=== PATIENT | male | born 1940 | race Caucasian/White ===

== ENCOUNTER 2020-04-13 05:58 | Inpatient (IN) ==
[2020-04-08 14:30] LABS: Basophils # (Auto) 0.04 K/mcL (0.00-0.30); Basophils % (Auto) 0.6 % (0.0-2.0); Eosinophils # (Auto) 0.23 K/mcL (0.00-0.70); Eosinophils % (Auto) 3.7 % (0.0-7.0); Hematocrit 42.6 % (40.1-51.0); Hemoglobin 13.9 g/dL (13.7-17.5); Lymphocytes # (Auto) 1.75 K/mcL (1.50-4.80); Lymphocytes % (Auto) 28.2 % (15.5-49.0); Mean Cell Volume 90.1 fL (80.0-100.0); Mean Corpuscular HGB Conc 32.6 g/dL (31.0-36.0); Monocytes % (Auto) 14.5 % (1.0-12.0); Platelet Count 176 K/mcL (140-440); RBC 4.73 M/mcL (4.63-6.08); Red Cell Distribution Width 14.5 % (11.5-14.5); WBC 6.2 K/mcL (4.50-11.00)
[2020-04-08 14:41] LABS: Prothrombin Time 13.6 sec (11.9-14.5)
[2020-04-08 14:52] LABS: Blood Urea Nitrogen 25 mg/dl (8-23); Calcium 10.2 mg/dl (8.6-10.4); Carbon Dioxide 25 mmol/L (22-30); Chloride 101 mmol/L (96-108); Glomerular Filtration Rate 58; Glucose 93 mg/dL (70-105)
[2020-04-08 15:15] LABS: Appearance,Urine CLEAR; Bilirubin,Urine NEG (NEG); Color,Urine YELLOW; Culture Indicated,Urine NO; Glucose,Urine (UA) NEGATIVE (NEG); Ketones,Urine NEG (NEG); Leukocyte Esterase,Urine NEG /uL (NEG); Nitrate,Urine NEG (NEG); Protein,Urine NEG (NEG); Specific Gravity,Urine 1.019 (1.000-1.035); Urine Blood NEG mg/dL (<0.03); Urobilinogen,Urine NEG (NEG)
[2020-04-13] MEDS ORDERED: CELECOXIB 200 MG CAPSULE PO SCH (06:00)
[2020-04-13] MEDS ORDERED: ceFAZolin 2 GM in DEXTROSE 5% IN WATER 50 ML IV SCH (06:00)
[2020-04-13] MEDS ORDERED: PREGABALIN 75 MG CAPSULE PO SCH (06:00)
[2020-04-13] MEDS ORDERED: oxyCODONE 10 MG TAB.ER.12H PO SCH (06:00)
[2020-04-13] MEDS ORDERED: ACETAMINOPHEN 500 MG TABLET PO SCH (06:00)
[2020-04-13] MEDS ORDERED: SCOPOLAMINE 1 PATCH PATCH TOPICAL PRN (07:30)
[2020-04-13] MEDS ORDERED: IPRATROPIUM/ALBUTEROL 3 ML AMPUL.NEB NEB PRN ×2 (07:30→10:16)
[2020-04-13] MEDS ORDERED: ONDANSETRON 4 MG/2 ML VIAL ONE (09:30)
[2020-04-13] MEDS ORDERED: KETAMINE 100 MG/ML ML ONE (09:30)
[2020-04-13] MEDS ORDERED: ROPIVACAINE HCL/PF 20 ML VIAL IJ ONE (09:30)
[2020-04-13] MEDS ORDERED: ESMOLOL 100 MG/10 ML VIAL IV ONE (09:30)
[2020-04-13] MEDS ORDERED: SUCCINYLCHOLINE 20 MG/ML ML IV ONE (09:30)
[2020-04-13] MEDS ORDERED: GLYCOPYRROLATE 0.2 MG/ML VIAL IV ONE (09:30)
[2020-04-13] MEDS ORDERED: LIDOCAINE HCL/PF 100 MG/5 ML SYRINGE IV ONE (09:30)
[2020-04-13] MEDS ORDERED: fentaNYL 250 MCG/5 ML VIAL IV ONE (09:30)
[2020-04-13] MEDS ORDERED: PROPOFOL 200 MG/20 ML VIAL IV ONE (09:30)
[2020-04-13] MEDS ORDERED: PHENYLEPHRINE 10 MG/ML VIAL ONE (09:30)
[2020-04-13] MEDS ORDERED: DEXAMETHASONE 10 MG/ML VIAL ONE (09:30)
[2020-04-13] MEDS ORDERED: MIDAZOLAM 2 MG/2 ML VIAL ONE (09:30)
[2020-04-13] MEDS ORDERED: GENTAMICIN SULFATE 800 MG/20 ML VIAL IR ONE (09:48)
[2020-04-13] MEDS ORDERED: ONDANSETRON 4 MG/2 ML VIAL IV PRN ×2 (10:16→18:01)
[2020-04-13] MEDS ORDERED: BENZOCAINE/MENTHOL 1 LOZENGE PO PRN ×2 (10:16→18:01)
[2020-04-13] MEDS ORDERED: LACTATED RINGERS 250 ML IV PRN (10:16)
[2020-04-13] MEDS ORDERED: METHOCARBAMOL 1,000 MG/10 ML VIAL IV PRN (10:16)
[2020-04-13] MEDS ORDERED: FLUMAZENIL 0.1 MG/ML ML IV PRN (10:16)
[2020-04-13] MEDS ORDERED: fentaNYL 100 MCG/2 ML VIAL IV PRN (10:16)
[2020-04-13] MEDS ORDERED: NALOXONE HCL 0.4 MG/ML VIAL IV PRN (10:16)
[2020-04-13] MEDS ORDERED: LABETALOL 5 MG/ML ML IV PRN (10:16)
[2020-04-13] MEDS ORDERED: METOPROLOL TARTRATE 5 MG/5 ML VIAL IV PRN (10:16)
[2020-04-13] MEDS ORDERED: LACTATED RINGERS 1,000 ML IV SCH ×2 (10:30→18:15)
--- NOTE | 2020-04-13 10:55 | Discharge Plan ---
Discharge Instructions - TSA Patient Instructions Total Shoulder Protocol: Leave immobilizer in place except for bathing and ROM. Abduction pillow. Continue to wear sling until seen by physician. [place]man Pendulum : These exercises use momentum produced by your body to move your shoulder joint. Bend your knees and shift your weight to your front leg, then back, allowing your arm to swing in the same directions. Using the same technique, alternately shift your weight between your right and left legs, allowing your arm to swing from side to side. These exercises are also performed in counterclockwise and clockwise circular motions. Typically these exercises are performed several times per day, for a set number repetitions or minutes, such as 20 times in a row or 5 minutes at a time. Discharge Plan Patient/Caregiver Discharge Instructions Activity: as per physical therapy Diet: Regular Diet and Cardiac Prescriptions: New oxycodone-acetaminophen 5-325 mg tablet 1 - 2 tab PO Q4H MDD 8 PRN (Reason: pain) Qty: 75 RF: 0 docusate sodium 100 mg capsule 100 mg PO BID Qty: 60 RF: 0 No Action amlodipine 5 MG tablet 5 mg PO HS RF: 0 hydrochlorothiazide 12.5 MG capsule 12.5 mg PO DAILY RF: 0 lisinopril 40 MG tablet 40 mg PO HS RF: 0 aspirin [Adult Low Dose Aspirin] 81 MG tablet,delayed release (DR/EC) 81 mg PO DAILY RF: 0 docusate sodium 100 MG capsule 100 mg PO BID Qty: 60 RF: 0 [id number] [MegaRed [place]-3 Krill Oil] 1,000-230-60 mg Capsule 1 cap PO QDAY RF: 0 Other Ambulatory Orders: Brace/Splint (ONCE) Location: None Selected Ordered By: Mike Maurice Physical Therapy DC - TSA (Routine) Location: None Selected Ordered By: Mike Maurice Follow Up Plan Follow up with: Mike Maurice PA-C [Physician Deputy District Customs Director] - Patient Disposition: Home, Self-Care Prognosis: Good Rehab Potential: Good I certify that the patient requires SNF services: No Overall status at discharge: patient is progressing back to baseline Discharge Orders: Discharge Order (Routine); Ordered 04/14/20 Ordered By: Mike Maurice
[2020-04-13] MEDS ORDERED: POLYETHYLENE GLYCOL 3350 17 GM PACKET PO PRN (18:01)
[2020-04-13] MEDS ORDERED: ACETAMINOPHEN 325 MG TABLET PO PRN (18:01)
[2020-04-13] MEDS ORDERED: MAGNESIUM HYDROXIDE 30 ML ORAL.SUSP PO PRN (18:01)
[2020-04-13] MEDS ORDERED: KETOROLAC 15 MG/ML VIAL IV PRN (18:01)
[2020-04-13] MEDS ORDERED: BISACODYL 10 MG SUPP.RECT PR PRN (18:01)
[2020-04-13] MEDS ORDERED: TRANEXAMIC ACID 1,000 MG/10 ML VIAL IV ONE (18:01)
[2020-04-13] MEDS ORDERED: TEMAZEPAM 15 MG CAPSULE PO PRN (18:01)
[2020-04-13] MEDS ORDERED: FLEETS ADULT ENEMA PR PRN (18:01)
[2020-04-13] MEDS ORDERED: HYDROmorphone 1 MG/ML SYRINGE IV PRN (18:01)
[2020-04-13] MEDS: ceFAZolin 1 GM VIAL IV SCH (19:27)
[2020-04-13] MEDS ORDERED: SENNOSIDES 1 TABLET PO SCH (21:00)
[2020-04-13] MEDS ORDERED: LISINOPRIL 20 MG TABLET PO SCH (21:00)
[2020-04-13] MEDS ORDERED: amLODIPine 5 MG TABLET PO SCH (21:00)
[2020-04-13] MEDS ORDERED: DOCUSATE SODIUM 100 MG CAPSULE PO SCH (21:00)
[2020-04-13] MEDS: DOCUSATE SODIUM 100 MG CAPSULE PO SCH (21:07)
[2020-04-13] MEDS: 0.9 % SODIUM CHLORIDE 10 ML SYRINGE IV SCH (21:16)
[2020-04-14] MEDS: ceFAZolin 1 GM VIAL IV SCH (03:21)
--- NOTE | 2020-04-14 07:46 | Orthopedic Progress Note ---
SUBJECTIVE Subjective Patient information: Note initiated : 04/14/20 at 7:45 am Service Date, if different from initiated Date: [] Patient: Johnnie Marcelo 79 y/o M admitted on 04/13/20 for Right Reverse Total Shoulder Arthroplasty . Chief Complaint: [Pt is stable this morning on post operative day without any significant concerns or complaints. Patients vital signs have remained stable. Patients dressing is dry and is grossly intact from a neurovascular and motor standpoint. Patients 10 point ROS is otherwise negative. ] Constitutional Vitals: Vital Signs Temp Pulse Resp BP Pulse Ox 97.8 F 62 15 118/60 96 04/14/20 04:32 04/14/20 04:32 04/14/20 04:32 04/14/20 04:32 04/13/20 23:29 Period Temp Pulse Resp BP Sys/Shipman Pulse Ox Last 24 Hr 96.6 F-98.5 F 45-101 - 91-128/46-77 91-100 Intake and Output 04/13/20 04/14/20 04/14/20 21:59 05:59 13:59 Intake Total 2360 1300 450 Output Total 800 425 325 Balance 1560 875 125 Weight 220 lb 9.6 oz Intake & Output: Intake & Output 04/13/20 04/14/20 04/14/20 21:59 05:59 13:59 Intake Total 2360 1300 450 Output Total 800 425 325 Balance 1560 875 125 Weight 220 lb 9.6 oz Intake: Oral 2360 1300 450 Output: Urine Catheter Amount 800 Void Amount 425 325 Other: Meal Dinner Percent of Meal Consumed 50% Feeding Ability Independent Urine Appearance Clear Straight Clear Urine Color Dark Yellow Straight Dark Yellow Urine Odor Strong Extremities Exam Extremities exam: Present normal capillary refill, normal inspection, Foot pink and warm and neurovascular intact OBJ DATA Labs CBC & Chem 7: 04/08/20 11:25 04/08/20 11:25 Meds: Medications Acetaminophen (Tylenol) 650 mg PO Q6HP PRN PRN Reason: PAIN/FEVER > 101 Hydrocodone Bitart/Acetaminophen ([place] 10/325mg) 0 tab PO Q4HP PRN PRN Reason: PAIN LEVEL 3-6 Amlodipine Besylate (Norvasc) 5 mg PO HS [facility] Last Admin: 04/13/20 21:07 Dose: 5 mg Documented by: Aspirin (Aspirin) 81 mg PO DAILY [facility] Bisacodyl (Dulcolax) 10 mg WA Q2-3DAYS PRN PRN Reason: Constipation Docusate Sodium (Colace) 100 mg PO BID [facility] Last Admin: 04/13/20 21:07 Dose: 100 mg Documented by: Hydrochlorothiazide (Oretic) 12.5 mg PO DAILY [facility] Hydromorphone HCl (Dilaudid) 0 mg IV Q2HP PRN; Protocol PRN Reason: Per Pain Protocol Ketorolac Tromethamine (Toradol) 15 mg IV Q6HP PRN PRN Reason: Pain Stop: 04/15/20 18:01 Lisinopril (Zestril) 40 mg PO [facility] Last Admin: 04/13/20 21:07 Dose: 40 mg Documented by: Magnesium Hydroxide (Milk Of Magnesia) 30 ml PO BIDP PRN PRN Reason: Constipation Ondansetron HCl (Zofran) 4 mg IV Q4HP PRN PRN Reason: Nausea And Vomiting Polyethylene Glycol (Miralax) 17 gm PO DAILYP PRN PRN Reason: Constipation Senna (Senokot) 2 tab PO HS [facility] Last Admin: 04/13/20 21:07 Dose: 2 tab Documented by: Sodium Biphosphate/Sodium Phosphate (Fleets Adult) 1 dose WA Q3-4DAYS PRN PRN Reason: Constipation Sodium Chloride (Saline Flush) 10 ml IV Q8 [facility] Last Admin: 04/13/20 21:16 Dose: 10 ml Documented by: Temazepam (Restoril) 15 mg PO HSP PRN PRN Reason: Insomnia Last Admin: 04/13/20 21:07 Dose: 15 mg Documented by: Throat Lozenges (Cepacol) 1 lozenge PO PRN PRN PRN Reason: Sore Throat A/P Narrative A/P Narrative: The patient has been educated regarding dressing care, Physical Therapy recommendations, home exercises, restrictions, and follow up appointments. The patient has had all necessary DME prescribed. The patient has remained relatively stable during their hospital course. Time Spent With Patient Time: Total time spent is greater than 50% in coordination of care (as documented) at patient's floor/unit and/or counseling patient: Total time spent with greater than 50% in coordination of care (as documented) at patient's floor/unit and/or counseling patient:: less than 15 minutes
[2020-04-14] MEDS: DOCUSATE SODIUM 100 MG CAPSULE PO SCH (08:13)
[2020-04-14] MEDS: 0.9 % SODIUM CHLORIDE 10 ML SYRINGE IV SCH ×2 (08:13→13:16)
[2020-04-14] MEDS ORDERED: HYDROCHLOROTHIAZIDE 12.5 MG CAPSULE PO SCH (09:00)
[2020-04-14] MEDS ORDERED: KRILL OM DHA EPA PHOSPHO AST PO SCH (09:00)
[2020-04-14] MEDS ORDERED: ASPIRIN 81 MG TAB.CHEW PO SCH (09:00)
--- NOTE | 2020-04-14 09:05 | XRay Report ---
HISTORY: Postop right shoulder arthroplasty FINDINGS: There is a well-positioned reverse shoulder prosthesis. No fracture is present. There is gas in the soft tissues around the joint. IMPRESSION: Well-positioned shoulder prosthesis Interpreted and Authenticated by: Cam Kaplan 04/14/20
--- NOTE | 2020-04-14 10:11 | Operative Note ---
DATE OF OPERATION: 04/13/2020 PREOPERATIVE DIAGNOSIS: Right shoulder rotator cuff arthropathy with severe arthritis. POSTOPERATIVE DIAGNOSIS: Right shoulder rotator cuff arthropathy with severe arthritis. PROCEDURE: Right reverse total shoulder. SURGEON: Santosh Burdick MD PUBLIC HEALTH SPECIALIST: Mike Maurice PA-C. This provider's expertise and technical skill were required throughout the case. The PA assisted with preoperative coordination, intraoperative retraction, wound closure, dressing and splint application, as well as postoperative documentation and care coordination. ANESTHESIA: General LMA anesthesia. COMPLICATIONS: None. ESTIMATED BLOOD LOSS: About 150 mL DISPOSITION: PACU. INDICATION FOR SURGERY: Failed conservative care. The patient had lost the ability to raise his arm above his head or even get it shoulder level. It had almost become completely immobile. It had a prior reverse total shoulder done on the left side with which he has done very well. The patient understood the risks and benefits, and agreed to proceed with the case. DESCRIPTION OF PROCEDURE: We marked the shoulder appropriately for clearance and signed the consent form. Once done, the patient was put to sleep with general LMA anesthesia. Once asleep, the patient had the right shoulder sterilely prepped and draped in the usual sterile fashion in a beach chair position. Once this was done, we placed Ioban over the skin and over the axillary fold. We then made a deltopectoral approach to the shoulder which measured about 4 inches in length. We retracted the deltoid laterally and he had an excellent deltoid. We exposed the joint, released the subscap and the biceps tendon remnants. We then irrigated thoroughly and then dislocated the humeral head, making our neck cut at its anatomical location. Once done, we then subluxed the humeral head posteriorly and released the glenoid labrum. Remnants of the biceps was released as well. Once we had performed a 360-degree capsular release as well as labral removal a central pin was then placed. This was reamed up for the 40 mm glenosphere. We placed the metaglene with a central screw measuring 32 mm, placing the peripheral screws, which measured 24, 28 and 32. These all gave excellent fixation. A 40 mm eccentric glenosphere with 2 mm of offset was tapped into place to optimize coverage. We then prepared the humerus. The humerus was prepared, reaming up to the size 13. We then trialed the size 13 stem and a standard poly. Initially, this was too tight. We did have to countersink the stem slightly and recut the anatomical neck cut. Once done, we then retrialed. This gave excellent stability and range of motion and the tension was perfect with 1 mm of play. We irrigated thoroughly and then placed a 13 stem with a small amount of cement distally. This was antibiotic-impregnated cement given the patient's diabetes. Once done, we were able to then place a standard thickness poly and it was very stable. We repaired the deltopectoral interval with 2-0 Vicryl and the skin was closed with Stratafix and adhesive closure. A DonJoy sling was fitted and given to the patient. The patient tolerated this well without complication. These components were [place] components, a size 13 stem, 40 mm eccentric humeral head and 2 mm of offset, standard thickness poly and screws as dictated. RBH:priyanka Job ID: [id number] Doc ID: [id number] Santosh Burdick MD
[2020-04-14] MEDS: HYDROcodone/APAP 10/325MG TABLET PO PRN ×2 (13:16→15:51)
== END 2020-04-14 17:20 | disposition home or self-care (01) | DRG 483 ==
LOC: MEDSUR 05:58
PROVIDERS: ADMIT Orthopaedic Surgery; ATTEND Orthopaedic Surgery